=== PATIENT | male | born 1940 | race Caucasian/White ===

== ENCOUNTER 2019-04-07 12:47 | Emergency (ER) | payer MEDICARE ==
[~2019-04-07] VITALS: Ht 177.8 cm; Wt 79.8 kg
[~2019-04-07 12:47] MED LIST: ALLO100T PO; ASPI-1071 PO; CALC0.2511 PO; COR3.125T PO; CYCL25CA PO; FURO40TA4 PO; HYDR-3968 PO; HYDR-4069 PO; MYCO250C46 PO; PANT-47 PO; POTA20PA40 PO; PRED1TAB PO
[2019-04-07 12:49] VITALS: BP 149/67
[2019-04-07] MEDS ORDERED: mupirocin 2% ointment 22GM TP STA (13:06)
[2019-04-07] MEDS ORDERED: MUPI22OI30 TOP (13:10)
[2019-04-23] MEDS ORDERED: SIRO1TAB6 PO (10:09)
[2019-04-23] MEDS ORDERED: PHO667C PO (10:09)
[2019-04-23] MEDS ORDERED: FISH OIL PO (10:16)
[2019-04-23] MEDS ORDERED: ATOR10TA70 PO (10:16)
[2019-04-23] MEDS ORDERED: MULT-955 PO (10:16)
== END 2019-04-07 13:53 | disposition home or self-care (01) ==
LOC: ER 12:48
DX: S41.112A Laceration without foreign body of left upper arm, initial encounter (principal); S70.11XA Contusion of right thigh, initial encounter; S70.12XA Contusion of left thigh, initial encounter; I10 Essential (primary) hypertension; J44.9 Chronic obstructive pulmonary disease, unspecified; F12.90 Cannabis use, unspecified, uncomplicated; Z98.890 Other specified postprocedural states; Z95.0 Presence of cardiac pacemaker; Z88.0 Allergy status to penicillin; Z88.8 Allergy status to other drugs, medicaments and biological substances; Z79.82 Long term (current) use of aspirin; Z79.899 Other long term (current) drug therapy; W01.0XXA Fall on same level from slipping, tripping and stumbling without subsequent striking against object, initial encounter; Y93.89 Activity, other specified; Y92.89 Other specified places as the place of occurrence of the external cause; Y99.8 Other external cause status
CPT/HCPCS: 99283

== ENCOUNTER 2019-04-13 04:07 | Emergency (ER) | payer MEDICARE ==
[~2019-04-13] VITALS: Ht 177.8 cm; Wt 65.0 kg
[~2019-04-13 04:07] MED LIST changes: +MUPI22OI30 TOP
[2019-04-13 04:18] VITALS: BP 151/60
[2019-04-13] MEDS ORDERED: LIDOcaine/epinephrine TOPICAL 5 ML BTL TOP ONE (05:20)
[2019-04-23] MEDS ORDERED: PHO667C PO (10:09)
[2019-04-23] MEDS ORDERED: SIRO1TAB6 PO (10:09)
[2019-04-23] MEDS ORDERED: ATOR10TA70 PO (10:16)
[2019-04-23] MEDS ORDERED: MULT-955 PO (10:16)
[2019-04-23] MEDS ORDERED: FISH OIL PO (10:16)
== END 2019-04-13 07:09 | disposition home or self-care (01) ==
LOC: ER 04:08
DX: S41.112D Laceration without foreign body of left upper arm, subsequent encounter (principal); I10 Essential (primary) hypertension; F12.90 Cannabis use, unspecified, uncomplicated; J44.9 Chronic obstructive pulmonary disease, unspecified; Z88.0 Allergy status to penicillin; Z88.8 Allergy status to other drugs, medicaments and biological substances; Z79.82 Long term (current) use of aspirin; Z79.899 Other long term (current) drug therapy; Z95.0 Presence of cardiac pacemaker; Z98.890 Other specified postprocedural states; Z94.1 Heart transplant status; W01.0XXD Fall on same level from slipping, tripping and stumbling without subsequent striking against object, subsequent encounter
CPT/HCPCS: 99282

== ENCOUNTER 2019-04-25 11:33 | Day surgery (SDC) | payer MEDICARE ==
[2019-04-23 11:20] LABS: CLARITY,URINE CLOUDY (Clear); COLOR,URINE YELLOW (Yellow); GLUCOSE, URINE NEGATIVE (Neg); KETONES,URINE TRACE mg/dl (Neg); LEUKOCYTE ESTERASE ,URINE MODERATE (Neg); NITRITES, URINE NEGATIVE (Neg); OCCULT BLOOD,URINE LARGE (Neg); PH,URINE 5.5 (4.8-8.0); PROTEIN,URINE 100 mg/dl (Neg); UROBILINOGEN,URINE 0.2 E.U/dL (0.2-1.0)
[2019-04-23 11:21] LABS: UA COLLECTION TYPE CLN CATCH MIDSTREAM
[2019-04-23 11:27] LABS: BASOPHILS # (AUTO) 0.1 X10'3 (0-0.2); BASOPHILS % (AUTO) 1.2 % (0-1); EOSINOPHILS % (AUTO) 0.9 % (0-6); LYMPHOCYTES % (AUTO) 21.3 % (21-51); MEAN CORPUSCULAR HEMOGLOBIN 31.6 PG (27.0-31.0); MEAN CORPUSCULAR HGB CONC 32.1 g/dL (33.0-36.5); MEAN CORPUSCULAR VOLUME 98.3 FL (78-98); MEAN PLATELET VOLUME 8.3 FL (7.4-10.4); MONOCYTES # (AUTO) 0.5 X10'3 (0-0.9); MONOCYTES % (AUTO) 11.2 % (2-12); NEUTROPHILS # (AUTO) 3.2 X10'3 (1.8-7.7); NEUTROPHILS % (AUTO) 65.4 % (42-75); PRE OP HEMATOCRIT 33.9 % (42.0-52.0); PRE OP PLATELET COUNT 158 X10'3 (140-440); RED BLOOD COUNT 3.45 X10'6 (4.70-6.10); RED CELL DISTRIBUTION WIDTH 16.3 % (11.5-14.5)
[2019-04-23 11:30] LABS: RBC,URINE 20-50 /HPF (0-2); SQUAMOUS EPITHELIAL CELL,UR MODERATE /LPF (FEW); WBC,URINE TNTC /HPF (0-4)
[2019-04-23 11:31] LABS: BACTERIA,URINE 1+ /HPF (Neg); TRANSITIONAL EPI CELLS,URINE MODERATE /HPF
[2019-04-23 11:31] LABS: PRE OP HEMOGLOBIN 10.9 g/dL (14.0-17.9)
[2019-04-23 11:37] LABS: ALBUMIN 3.2 G/DL (3.4-5.0); ALBUMIN/GLOBULIN RATIO 0.7 (1.1-1.5); ALKALINE PHOSPHATASE 94 IU/L (46-116); BLOOD UREA NITROGEN 55 MG/DL (7-18); BUN/CREATININE RATIO 7.4 (5.4-32.0); CALCIUM 8.4 MG/DL (8.5-10.1); CHLORIDE 102 MMOL/L (99-107); CREATININE 7.44 MG/DL (0.60-1.10); PRE OP ALT 15 U/L (30-65); PRE OP ANION GAP 9 (8-16); PRE OP AST 18 U/L (10-37); PRE OP BILIRUB, TOTAL 0.6 MG/DL (0.0-1.0); PRE OP GLUCOSE 114 MG/DL (70-104); PRE OP SODIUM 140 MMOL/L (135-145); TOTAL CARBON DIOXIDE 29.3 MMOL/L (24-32); TOTAL PROTEIN 7.5 G/DL (6.4-8.2); eGFR 7 ML/MIN
[~2019-04-25] VITALS: Ht 177.8 cm; Wt 77.0 kg
[~2019-04-25 11:33] MED LIST changes: +ATOR10TA70 PO; -CALC0.2511 PO; +DOCUMENT DATE & TIME OF BETA-BLOCKER PO ONE; +FISH OIL PO; +MULT-955 PO; -MUPI22OI30 TOP; -MYCO250C46 PO; -PANT-47 PO; +PHO667C PO; -POTA20PA40 PO; +SIRO1TAB6 PO; +clindamycin-Cleocin 900mg/D5W 50 ML IV ONE; +famotidine 20mg tablet PO ONE; +normal saline 1000ml 1,000 ML IV SCH
[2019-04-25 13:11] LABS: ISTAT CREATININE 6.6 mg/dL (0.8-1.3); ISTAT HGB 11.9 g/dl (14.0-18.0); ISTAT IONIZED CALCIUM 1.09 mmol/L (1.03-1.32); ISTAT K 4.8 mmol/L (3.5-5.1); POC BUN/CREATININE RATIO 6.1 (5.4-32.0)
[2019-04-25] MEDS ORDERED: ringers solution, lacted 1,000 ML IV SCH (13:36)
[2019-04-25] MEDS ORDERED: hydrALAZINE 20mg/ml inj. IV PRN (13:40)
[2019-04-25] MEDS ORDERED: ondansetron/PF 4mg/2ml inj IV PRN (13:40)
[2019-04-25] MEDS ORDERED: morphine 4 MG/ML inj SYRINge IV PRN ×2 (13:40)
[2019-04-25] MEDS ORDERED: fentaNYL/PF 50MCG/1 ML 2ML syringe IV PRN ×2 (13:40)
[2019-04-25] MEDS ORDERED: enalaprilat dihydrate 2.5mg/2ml vial IV PRN (13:40)
[2019-04-25 14:09] VITALS: BP 133/70
[2019-04-25] MEDS ORDERED: heparin sodium, porcine/PF 100unit/ml 5ML syringe ONE (14:12)
[2019-04-25] MEDS ORDERED: mupirocin 2% ointment 22GM ONE (14:12)
[2019-04-25] MEDS ORDERED: BUPIVAcaine/PF 2.5 mg/ml (0.25%) 30ml vial ONE (14:12)
[2019-04-25 14:14] VITALS: BP 133/70
[2019-04-25] MEDS ORDERED: fentaNYL/PF 50MCG/1 ML 2ML syringe ONE (14:44)
[2019-04-25] MEDS ORDERED: midazolam 2 mg/2 ml injection ONE (14:44)
[2019-04-25] MEDS ORDERED: etomidate 2mg/ml inj. ONE (14:45)
[2019-04-25] MEDS ORDERED: sevoflurane 250ml liquid IH ONE (14:58)
[2019-04-25] MEDS ORDERED: rocuronium 10mg/ml inj IV ONE (14:58)
[2019-04-25] MEDS ORDERED: dexamethasone sod phosphate 4mg/ml inj. ONE (15:12)
[2019-04-25] MEDS ORDERED: ondansetron/PF 4mg/2ml inj ONE (15:12)
[2019-04-25 15:47] VITALS: BP 127/65
--- NOTE | 2019-04-25 15:47 | NUR ---
Received from OR via [facility], 20G RIGHT UPPER EXTREMEITY, 10L MASK, 100% SATURATED,, accompanied by Anesthesiologist DC and report given by Anesthesiolgist. A/O, TALKATIVE,DOESNT VERBALIZE ANY PAIN. PD CATH PRESENT LOW LEFT ABDOMIN CLEAN DRY INTACT Addendum: 04/25/19 at 1558 by Gregg Morin RN, RN Amended: Links added.
[2019-04-25 15:57] VITALS: BP 109/54
[2019-04-25 16:07] VITALS: BP 99/51
[2019-04-25 16:17] VITALS: BP 113/52
--- NOTE | 2019-04-25 16:27 | NUR ---
PATIENT SENT HOME WITH NEIGHBOR. ALL DC CRITERIA HAS BEEN MET. IV OUT WITHOUT ISSUE. ALL DC [id number] COVERED AND ALL QUESTIONS ANSWERED. DRESSING CDI TO ABDOMEN AND PD CATH INTACT. Addendum: 04/25/19 at 1705 by Gregg Morin RN RN Amended: Links added.
--- NOTE | 2019-04-25 16:27 | NUR ---
ALL DC CRITERIA HAS BEEN MET. PATIENT UNDERSTOOD ALL DC INSTRUCTIONS. IV OUT WITHOUT COMPLICATIONS. DENIES PAIN. DRESSING TO ABDOMEN IS CDI. VSS. NEW PD CATHETER PRESENT AND CDI. OUT VIA WHEELCHAIR AFTER BEING ASSISTED IN DRESSING. DRINKING WATER AND PATIENT HAS NO COMPLAINTS AT THIS TIME. Addendum: 04/25/19 at 1653 by Gregg Morin RN, RN Amended: Links added.
== END 2019-04-25 16:27 | disposition home or self-care (01) ==
LOC: PAS 11:33
PROVIDERS: ATTEND Surgery
DX: N19 Unspecified kidney failure (principal); M19.90 Unspecified osteoarthritis, unspecified site; Z87.891 Personal history of nicotine dependence; Z98.890 Other specified postprocedural states; Z94.1 Heart transplant status; Z79.899 Other long term (current) drug therapy; Z88.0 Allergy status to penicillin; Z88.8 Allergy status to other drugs, medicaments and biological substances; I10 Essential (primary) hypertension; Z99.2 Dependence on renal dialysis
CPT/HCPCS: 36415; 49324; 80047; 80053; 81001; 85025; 87088; 93005; C1750; J1100; J1642; J2250; J2405; J3010; J3490; J7030; J7120; A4215; A4618; A6449; A7000

== ENCOUNTER 2019-05-19 01:48 | Emergency (ER) | payer MEDICARE ==
[~2019-05-19] VITALS: Ht 177.8 cm; Wt 79.0 kg
[~2019-05-19 01:48] MED LIST changes: -DOCUMENT DATE & TIME OF BETA-BLOCKER PO ONE; -clindamycin-Cleocin 900mg/D5W 50 ML IV ONE; -famotidine 20mg tablet PO ONE; -normal saline 1000ml 1,000 ML IV SCH
[2019-05-19] MEDS ORDERED: normal saline 1000ML IV soln IVB ONE (01:55)
[2019-05-19] MEDS ORDERED: morphine 4 MG/ML inj SYRINge IV PRN (01:55)
[2019-05-19] MEDS ORDERED: ondansetron/PF 4mg/2ml inj IV ONE (01:55)
[2019-05-19] MEDS ORDERED: levoFLOXACIN-Levaquin 250mg/D5 50 ML IV STA (02:23)
[2019-05-19 02:31] LABS: BASOPHILS # (AUTO) 0.1 X10'3 (0-0.2); EOSINOPHILS # (AUTO) 0.2 X10'3 (0-0.9); HEMOGLOBIN 11.5 g/dl (14.0-17.9); MEAN CORPUSCULAR HGB CONC 32.3 g/dL (33.0-36.5); MONOCYTES # (AUTO) 0.7 X10'3 (0-0.9)
[2019-05-19 02:33] LABS: BASOPHILS % (AUTO) 0.9 % (0-1); HEMATOCRIT 35.6 % (42.0-52.0); LYMPHOCYTES % (AUTO) 12.6 % (21-51); MEAN CORPUSCULAR HEMOGLOBIN 32.3 PG (27.0-31.0); MEAN PLATELET VOLUME 8.9 FL (7.4-10.4); NEUTROPHILS % (AUTO) 75.5 % (42-75); PLATELET COUNT 125 X10'3 (140-440); RED BLOOD COUNT 3.56 X10'6 (4.70-6.10); RED CELL DISTRIBUTION WIDTH 16.4 % (11.5-14.5); WHITE BLOOD COUNT 7.9 X10'3 (4.5-11.0)
[2019-05-19 02:41] LABS: PARTIAL THROMBOPLASTIN TIME 30 SECONDS (22-32)
[2019-05-19 02:46] LABS: ALANINE AMINOTRANSFERASE 13 U/L (12-78); ALBUMIN 2.8 G/DL (3.4-5.0); ALBUMIN/GLOBULIN RATIO 0.7 (1.1-1.5); ALKALINE PHOSPHATASE 102 IU/L (46-116); ANION GAP 9 (8-16); ASPARTATE AMINO TRANSFERASE 20 U/L (10-37); BILIRUBIN,TOTAL 0.6 MG/DL (0.1-1.0); BLOOD UREA NITROGEN 58 MG/DL (7-18); CALCIUM 7.9 MG/DL (8.5-10.1); CHLORIDE 104 MMOL/L (99-107); CREATININE 7.26 MG/DL (0.60-1.10); GLUCOSE 95 MG/DL (70-104); LIPASE 151 U/L (73-393); POTASSIUM 5.1 MMOL/L (3.5-5.1); SODIUM 141 MMOL/L (135-145); TOTAL CARBON DIOXIDE 27.6 MMOL/L (24-32); TOTAL PROTEIN 7.1 G/DL (6.4-8.2); eGFR 7 ML/MIN
[2019-05-19 03:37] LABS: CLARITY,URINE CLOUDY (Clear); COLOR,URINE YELLOW (Yellow); GLUCOSE, URINE NEGATIVE (Neg); KETONES,URINE TRACE mg/dl (Neg); LEUKOCYTE ESTERASE ,URINE MODERATE (Neg); NITRITES, URINE NEGATIVE (Neg); OCCULT BLOOD,URINE LARGE (Neg); PH,URINE 5.5 (4.8-8.0); PROTEIN,URINE 100 mg/dl (Neg); UA COLLECTION TYPE VOIDED; UROBILINOGEN,URINE 0.2 E.U/dL (0.2-1.0)
[2019-05-19 04:38] LABS: WBC,URINE 50-100 /HPF (0-4)
[2019-05-19 04:39] LABS: RBC,URINE 20-50 /HPF (0-2)
[2019-05-19 04:40] LABS: AMORPHOUS URATES 1+; BACTERIA,URINE FEW /HPF (Neg); MUCUS STRANDS NONE SEEN /LPF (Neg); SQUAMOUS EPITHELIAL CELL,UR FEW /LPF (FEW); WBC CLUMPS,URINE MODERATE /HPF (NEGATIVE)
[2019-05-19 04:52] VITALS: BP 103/62
== END 2019-05-19 04:55 | disposition home or self-care (01) ==
LOC: ER 01:49
DX: R10.84 Generalized abdominal pain (principal); R11.2 Nausea with vomiting, unspecified; J44.9 Chronic obstructive pulmonary disease, unspecified; F12.90 Cannabis use, unspecified, uncomplicated; I10 Essential (primary) hypertension; Z87.891 Personal history of nicotine dependence; Z98.890 Other specified postprocedural states; Z94.1 Heart transplant status; Z88.0 Allergy status to penicillin; Z88.5 Allergy status to narcotic agent; Z79.82 Long term (current) use of aspirin; Z79.899 Other long term (current) drug therapy; Z99.2 Dependence on renal dialysis
CPT/HCPCS: 36415; 80053; 81001; 83690; 84145; 85025; 85610; 85730; 87040; 87088; 96365; 96375; 99283; J1956; J2270; J2405; J7030

== ENCOUNTER 2019-05-23 11:52 | Day surgery (SDC) | payer MEDICARE ==
[~2019-05-23] VITALS: Ht 177.8 cm; Wt 80.3 kg
[~2019-05-23 11:52] MED LIST changes: +DOCUMENT DATE & TIME OF BETA-BLOCKER PO ONE; +clindamycin-Cleocin 900mg/D5W 50 ML IV ONE; +famotidine 20mg tablet PO ONE; +ringers solution, lacted 1,000 ML IV SCH
[2019-05-23 12:00] VITALS: BP 122/65
[2019-05-23 13:25] LABS: BASOPHILS % (AUTO) 0.5 % (0-1); EOSINOPHILS # (AUTO) 0.1 X10'3 (0-0.9); EOSINOPHILS % (AUTO) 0.8 % (0-6); HEMOGLOBIN 11.6 g/dl (14.0-17.9); LYMPHOCYTES # (AUTO) 0.9 X10'3 (1.1-4.8); LYMPHOCYTES % (AUTO) 13.1 % (21-51); MEAN CORPUSCULAR HEMOGLOBIN 32.4 PG (27.0-31.0); MEAN CORPUSCULAR HGB CONC 32.3 g/dL (33.0-36.5); MEAN CORPUSCULAR VOLUME 100.4 FL (78-98); MEAN PLATELET VOLUME 8.6 FL (7.4-10.4); MONOCYTES # (AUTO) 0.6 X10'3 (0-0.9); MONOCYTES % (AUTO) 9.5 % (2-12); NEUTROPHILS # (AUTO) 5.2 X10'3 (1.8-7.7); NEUTROPHILS % (AUTO) 76.1 % (42-75); PLATELET COUNT 131 X10'3 (140-440); RED BLOOD COUNT 3.58 X10'6 (4.70-6.10); RED CELL DISTRIBUTION WIDTH 16.7 % (11.5-14.5); WHITE BLOOD COUNT 6.9 X10'3 (4.5-11.0)
[2019-05-23 13:47] LABS: ALANINE AMINOTRANSFERASE 6 U/L (12-78); ALBUMIN 2.4 G/DL (3.4-5.0); ALBUMIN/GLOBULIN RATIO 0.6 (1.1-1.5); ALKALINE PHOSPHATASE 95 IU/L (46-116); ANION GAP 8 (8-16); ASPARTATE AMINO TRANSFERASE 15 U/L (10-37); BILIRUBIN,TOTAL 0.6 MG/DL (0.1-1.0); BLOOD UREA NITROGEN 43 MG/DL (7-18); BUN/CREATININE RATIO 5.9 (5.4-32.0); CALCIUM 8.1 MG/DL (8.5-10.1); CHLORIDE 102 MMOL/L (99-107); CREATININE 7.26 MG/DL (0.60-1.10); GLUCOSE 93 MG/DL (70-104); POTASSIUM 4.9 MMOL/L (3.5-5.1); SODIUM 139 MMOL/L (135-145); TOTAL CARBON DIOXIDE 28.9 MMOL/L (24-32); TOTAL PROTEIN 6.7 G/DL (6.4-8.2); eGFR 7 ML/MIN
[2019-05-23] MEDS ORDERED: midazolam 2 mg/2 ml injection ONE (15:58)
[2019-05-23] MEDS ORDERED: fentaNYL/PF 50MCG/1 ML 2ML syringe ONE (15:58)
[2019-05-23 16:00] VITALS: BP 108/61
--- NOTE | 2019-05-23 16:00 | NUR ---
Received from OR via [facility] , accompanied by Anesthesiologist PERRY and report given by Anesthesiolgist. Pt with 20 gauge left hand abx running. Abd dressing present, cdi. vitals stable, cont to access. Addendum: 05/23/19 at 1624 by Gregg Morin RN RN Amended: Links added.
[2019-05-23] MEDS ORDERED: propofol inj 20 ML IV ONE (16:01)
[2019-05-23] MEDS ORDERED: LIDOcaine 2% (20mg/ml) 5ml vial ONE (16:01)
[2019-05-23 16:10] VITALS: BP 124/62
[2019-05-23 16:20] VITALS: BP 120/54
[2019-05-23 16:30] VITALS: BP 107/51
[2019-05-23 16:40] VITALS: BP 108/68
--- NOTE | 2019-05-23 16:50 | NUR ---
ALL DC CRITERIA HAS BEEN MET. IV TAKEN OUT WITHOUT COMPLICATIONS. ALL INSTRUCTIONS COVERED AND ALL QUESTIONS ANSWERED. DRESSINGS CDI. OUT VIA WHEELCHAIR TO PERSONAL VEHICLE WHERE PATIENT WAS SECURED IN AND DRIVEN HOME BY neighbors. Addendum: 05/23/19 at 1658 by Gregg Morin RN, RN Amended: Links added.
== END 2019-05-23 16:50 | disposition home or self-care (01) ==
LOC: PAS 11:52
PROVIDERS: ATTEND Surgery
DX: T82.49XA Other complication of vascular dialysis catheter, initial encounter (principal); N18.6 End stage renal disease; M19.90 Unspecified osteoarthritis, unspecified site; Z94.1 Heart transplant status; Z98.890 Other specified postprocedural states; Z79.899 Other long term (current) drug therapy; Z88.0 Allergy status to penicillin; Z88.8 Allergy status to other drugs, medicaments and biological substances; Z87.891 Personal history of nicotine dependence; Z72.89 Other problems related to lifestyle; Z99.2 Dependence on renal dialysis; Y83.8 Other surgical procedures as the cause of abnormal reaction of the patient, or of later complication, without mention of misadventure at the time of the procedure; Y92.89 Other specified places as the place of occurrence of the external cause
CPT/HCPCS: 36415; 49422; 80053; 85025; 93005; J2001; J2250; J2704; J3010; J3490; J7120

== ENCOUNTER 2019-05-26 11:20 | Emergency (ER) | payer MEDICARE ==
[~2019-05-26] VITALS: Ht 177.8 cm; Wt 79.5 kg
[~2019-05-26 11:20] MED LIST changes: -DOCUMENT DATE & TIME OF BETA-BLOCKER PO ONE; -clindamycin-Cleocin 900mg/D5W 50 ML IV ONE; -famotidine 20mg tablet PO ONE; -ringers solution, lacted 1,000 ML IV SCH
[2019-05-26] MEDS ORDERED: CefTRIAXone 2gm/D5W 50ml 50 ML IV ONE (12:50)
[2019-05-26 13:48] LABS: ALANINE AMINOTRANSFERASE 7 U/L (12-78); ALBUMIN 2.3 G/DL (3.4-5.0); ALBUMIN/GLOBULIN RATIO 0.5 (1.1-1.5); ALKALINE PHOSPHATASE 99 IU/L (46-116); ANION GAP 13 (8-16); ASPARTATE AMINO TRANSFERASE 14 U/L (10-37); BILIRUBIN,TOTAL 0.5 MG/DL (0.1-1.0); BLOOD UREA NITROGEN 75 MG/DL (7-18); BUN/CREATININE RATIO 6.4 (5.4-32.0); CALCIUM 8.3 MG/DL (8.5-10.1); CHLORIDE 101 MMOL/L (99-107); CREATININE 11.68 MG/DL (0.60-1.10); GLUCOSE 111 MG/DL (70-104); POTASSIUM 5.2 MMOL/L (3.5-5.1); SODIUM 138 MMOL/L (135-145); TOTAL CARBON DIOXIDE 24.2 MMOL/L (24-32); TOTAL PROTEIN 6.6 G/DL (6.4-8.2); eGFR 4 ML/MIN
[2019-05-26 13:52] LABS: BASOPHILS % (AUTO) 0.4 % (0-1); EOSINOPHILS % (AUTO) 0.2 % (0-6); HEMATOCRIT 36.6 % (42.0-52.0); HEMOGLOBIN 11.7 g/dl (14.0-17.9); LYMPHOCYTES # (AUTO) 0.9 X10'3 (1.1-4.8); LYMPHOCYTES % (AUTO) 8.2 % (21-51); MEAN CORPUSCULAR HEMOGLOBIN 31.6 PG (27.0-31.0); MEAN CORPUSCULAR HGB CONC 31.8 g/dL (33.0-36.5); MEAN CORPUSCULAR VOLUME 99.3 FL (78-98); MEAN PLATELET VOLUME 8.8 FL (7.4-10.4); MONOCYTES # (AUTO) 0.5 X10'3 (0-0.9); MONOCYTES % (AUTO) 4.3 % (2-12); NEUTROPHILS # (AUTO) 9.8 X10'3 (1.8-7.7); NEUTROPHILS % (AUTO) 86.9 % (42-75); PLATELET COUNT 142 X10'3 (140-440); RED BLOOD COUNT 3.69 X10'6 (4.70-6.10); RED CELL DISTRIBUTION WIDTH 16.1 % (11.5-14.5); WHITE BLOOD COUNT 11.3 X10'3 (4.5-11.0)
[2019-05-26 14:36] VITALS: BP 148/77
== END 2019-05-26 14:25 | disposition home or self-care (01) ==
LOC: ER 11:21
DX: T85.838A Hemorrhage due to other internal prosthetic devices, implants and grafts, initial encounter (principal); I12.0 Hypertensive chronic kidney disease with stage 5 chronic kidney disease or end stage renal disease; N18.6 End stage renal disease; F12.90 Cannabis use, unspecified, uncomplicated; J44.9 Chronic obstructive pulmonary disease, unspecified; Z99.2 Dependence on renal dialysis; Z98.890 Other specified postprocedural states; Z94.1 Heart transplant status; Z88.0 Allergy status to penicillin; Z88.8 Allergy status to other drugs, medicaments and biological substances; Z79.82 Long term (current) use of aspirin; Z79.899 Other long term (current) drug therapy; Y69 Unspecified misadventure during surgical and medical care; Y92.89 Other specified places as the place of occurrence of the external cause
CPT/HCPCS: 36415; 80053; 83605; 84145; 85025; 87040; 96365; 99284; J0696

== ENCOUNTER 2019-06-03 09:02 | Emergency (ER) | payer MEDICARE ==
[~2019-06-03] VITALS: Ht 177.8 cm; Wt 77.3 kg
[2019-06-03] MEDS ORDERED: normal saline 1000ml 1,000 ML IV SCH (09:15)
[2019-06-03] MEDS ORDERED: pantoprazole 40 MG vial IV ONE (09:15)
[2019-06-03] MEDS ORDERED: ondansetron/PF 4mg/2ml inj IV ONE (09:15)
[2019-06-03 10:42] LABS: EOSINOPHILS % (AUTO) 0.4 % (0-6); HEMOGLOBIN 12.1 g/dl (14.0-17.9); MONOCYTES # (AUTO) 0.6 X10'3 (0-0.9); MONOCYTES % (AUTO) 5.6 % (2-12); RED CELL DISTRIBUTION WIDTH 16.4 % (11.5-14.5)
[2019-06-03 10:43] LABS: BASOPHILS % (AUTO) 0.3 % (0-1); HEMATOCRIT 37.7 % (42.0-52.0); LYMPHOCYTES # (AUTO) 0.9 X10'3 (1.1-4.8); LYMPHOCYTES % (AUTO) 7.6 % (21-51); MEAN CORPUSCULAR HEMOGLOBIN 31.6 PG (27.0-31.0); MEAN CORPUSCULAR HGB CONC 32.1 g/dL (33.0-36.5); MEAN CORPUSCULAR VOLUME 98.6 FL (78-98); MEAN PLATELET VOLUME 8.5 FL (7.4-10.4); NEUTROPHILS # (AUTO) 10.1 X10'3 (1.8-7.7); NEUTROPHILS % (AUTO) 86.1 % (42-75); PLATELET COUNT 148 X10'3 (140-440); RED BLOOD COUNT 3.82 X10'6 (4.70-6.10); WHITE BLOOD COUNT 11.7 X10'3 (4.5-11.0)
[2019-06-03 11:08] LABS: PLATELET ESTIMATE NORMAL
[2019-06-03 11:09] LABS: ALANINE AMINOTRANSFERASE 11 U/L (12-78); ALBUMIN 2.5 G/DL (3.4-5.0); ALBUMIN/GLOBULIN RATIO 0.6 (1.1-1.5); ALKALINE PHOSPHATASE 98 IU/L (46-116); ANION GAP 11 (8-16); ANISOCYTOSIS 1+; ASPARTATE AMINO TRANSFERASE 20 U/L (10-37); BILIRUBIN,TOTAL 0.4 MG/DL (0.1-1.0); BLOOD UREA NITROGEN 55 MG/DL (7-18); BUN/CREATININE RATIO 6.3 (5.4-32.0); CALCIUM 8.4 MG/DL (8.5-10.1); CHLORIDE 104 MMOL/L (99-107); CREATININE 8.78 MG/DL (0.60-1.10); ELLIPTOCYTES 1+; GLUCOSE 94 MG/DL (70-104); POLYCHROMASIA 1+; POTASSIUM 4.1 MMOL/L (3.5-5.1); SODIUM 140 MMOL/L (135-145); TOTAL CARBON DIOXIDE 24.7 MMOL/L (24-32); TOTAL PROTEIN 6.6 G/DL (6.4-8.2); eGFR 6 ML/MIN
--- NOTE | 2019-06-03 11:31 | NUR ---
PATIENT TO CT AT THIS TIME.
[2019-06-03] MEDS ORDERED: ONDA4TAB6 PO (12:02)
[2019-06-03] MEDS ORDERED: CIPR-260 PO (12:02)
[2019-06-03] MEDS ORDERED: METR-159 PO (12:02)
[2019-06-03 12:11] VITALS: BP 147/62
== END 2019-06-03 12:13 | disposition home or self-care (01) ==
LOC: ER 09:04
DX: K57.32 Diverticulitis of large intestine without perforation or abscess without bleeding (principal); R11.2 Nausea with vomiting, unspecified; R19.7 Diarrhea, unspecified; E66.9 Obesity, unspecified; R10.84 Generalized abdominal pain; J44.9 Chronic obstructive pulmonary disease, unspecified; F12.90 Cannabis use, unspecified, uncomplicated; I12.0 Hypertensive chronic kidney disease with stage 5 chronic kidney disease or end stage renal disease; N18.6 End stage renal disease; Z88.0 Allergy status to penicillin; Z88.8 Allergy status to other drugs, medicaments and biological substances; Z79.82 Long term (current) use of aspirin; Z79.899 Other long term (current) drug therapy; Z99.2 Dependence on renal dialysis; Z98.890 Other specified postprocedural states; Z94.1 Heart transplant status
CPT/HCPCS: 36415; 74176; 80053; 85025; 96361; 96374; 96375; 99284; C9113; J2405; J7030

== ENCOUNTER 2019-06-14 12:21 | Emergency (ER) | payer MEDICARE ==
[~2019-06-14] VITALS: Ht 162.6 cm; Wt 72.7 kg
[~2019-06-14 12:21] MED LIST changes: +CIPR-260 PO; +METR-159 PO; +ONDA4TAB6 PO
[2019-06-14 14:02] LABS: BASOPHILS # (AUTO) 0.1 X10'3 (0-0.2); BASOPHILS % (AUTO) 0.7 % (0-1); EOSINOPHILS % (AUTO) 0.2 % (0-6); HEMATOCRIT 39.1 % (42.0-52.0); HEMOGLOBIN 12.4 g/dl (14.0-17.9); LYMPHOCYTES # (AUTO) 1.1 X10'3 (1.1-4.8); LYMPHOCYTES % (AUTO) 6.7 % (21-51); MEAN CORPUSCULAR HEMOGLOBIN 31.2 PG (27.0-31.0); MEAN CORPUSCULAR HGB CONC 31.7 g/dL (33.0-36.5); MEAN CORPUSCULAR VOLUME 98.3 FL (78-98); MEAN PLATELET VOLUME 8.6 FL (7.4-10.4); MONOCYTES # (AUTO) 0.8 X10'3 (0-0.9); MONOCYTES % (AUTO) 4.8 % (2-12); NEUTROPHILS # (AUTO) 14.5 X10'3 (1.8-7.7); NEUTROPHILS % (AUTO) 87.6 % (42-75); PLATELET COUNT 175 X10'3 (140-440); RED BLOOD COUNT 3.97 X10'6 (4.70-6.10); WHITE BLOOD COUNT 16.5 X10'3 (4.5-11.0)
[2019-06-14 14:18] LABS: ALANINE AMINOTRANSFERASE 7 U/L (12-78); ALBUMIN 2.6 G/DL (3.4-5.0); ALBUMIN/GLOBULIN RATIO 0.6 (1.1-1.5); ALKALINE PHOSPHATASE 87 IU/L (46-116); ANION GAP 13 (8-16); ASPARTATE AMINO TRANSFERASE 20 U/L (10-37); BILIRUBIN,TOTAL 0.4 MG/DL (0.1-1.0); BLOOD UREA NITROGEN 31 MG/DL (7-18); BUN/CREATININE RATIO 3.8 (5.4-32.0); CALCIUM 8.4 MG/DL (8.5-10.1); CHLORIDE 103 MMOL/L (99-107); CREATININE 8.06 MG/DL (0.60-1.10); GLUCOSE 88 MG/DL (70-104); POTASSIUM 3.6 MMOL/L (3.5-5.1); SODIUM 140 MMOL/L (135-145); TOTAL CARBON DIOXIDE 23.6 MMOL/L (24-32); TOTAL PROTEIN 6.9 G/DL (6.4-8.2); eGFR 6 ML/MIN
[2019-06-14 15:27] LABS: C DIFF ANTIGEN POSITIVE (NEGATIVE); C DIFF SPECIMEN=DIARRHEA? ACCEPTABLE; C DIFFICILE TOXINS A&B POSITIVE (Neg)
--- NOTE | 2019-06-14 15:28 | NUR ---
Positive C-Diff 1526 Addendum: 06/14/19 at 1537 by ELKIN C-Diff Isolation already in place
[2019-06-14] MEDS ORDERED: VANC125C5 PO (15:45)
[2019-06-14] MEDS ORDERED: vancomycin 125mg/5ml ORAL solution 5ml UD bottle PO SCH (15:55)
[2019-06-14 16:20] VITALS: BP 146/80
== END 2019-06-14 16:24 | disposition home or self-care (01) ==
LOC: ER 12:22
DX: A04.72 Enterocolitis due to Clostridium difficile, not specified as recurrent (principal); I10 Essential (primary) hypertension; J44.9 Chronic obstructive pulmonary disease, unspecified; F12.90 Cannabis use, unspecified, uncomplicated; Z95.0 Presence of cardiac pacemaker; Z98.890 Other specified postprocedural states; Z60.2 Problems related to living alone; Z88.0 Allergy status to penicillin; Z88.8 Allergy status to other drugs, medicaments and biological substances; Z79.82 Long term (current) use of aspirin; Z79.899 Other long term (current) drug therapy
CPT/HCPCS: 36415; 80053; 85025; 87324; 87449; 99284

== ENCOUNTER 2019-06-29 08:08 | Emergency (ER) | payer MEDICARE ==
[~2019-06-29] VITALS: Ht 177.8 cm; Wt 75.0 kg
[~2019-06-29 08:08] MED LIST changes: -METR-159 PO; +VANC125C5 PO
[2019-06-29] MEDS ORDERED: normal saline 1000ML IV soln IVB ONE (09:10)
[2019-06-29] MEDS ORDERED: ondansetron/PF 4mg/2ml inj IV ONE (09:10)
--- NOTE | 2019-06-29 09:56 | NUR ---
pt refuses zofran at this time he is not nauseous.
[2019-06-29 09:58] LABS: BASOPHILS # (AUTO) 0.1 X10'3 (0-0.2); BASOPHILS % (AUTO) 0.7 % (0-1); EOSINOPHILS # (AUTO) 0.1 X10'3 (0-0.9); EOSINOPHILS % (AUTO) 0.6 % (0-6); HEMATOCRIT 35.4 % (42.0-52.0); HEMOGLOBIN 11.3 g/dl (14.0-17.9); LYMPHOCYTES % (AUTO) 9.4 % (21-51); MEAN CORPUSCULAR VOLUME 96.8 FL (78-98); MEAN PLATELET VOLUME 8.3 FL (7.4-10.4); MONOCYTES # (AUTO) 0.5 X10'3 (0-0.9); MONOCYTES % (AUTO) 4.3 % (2-12); NEUTROPHILS # (AUTO) 9.2 X10'3 (1.8-7.7); PLATELET COUNT 172 X10'3 (140-440); RED BLOOD COUNT 3.65 X10'6 (4.70-6.10); RED CELL DISTRIBUTION WIDTH 15.7 % (11.5-14.5); WHITE BLOOD COUNT 10.8 X10'3 (4.5-11.0)
[2019-06-29 10:10] LABS: ALANINE AMINOTRANSFERASE 15 U/L (12-78); ALBUMIN 2.5 G/DL (3.4-5.0); ALBUMIN/GLOBULIN RATIO 0.7 (1.1-1.5); ALKALINE PHOSPHATASE 99 IU/L (46-116); ANION GAP 12 (8-16); ASPARTATE AMINO TRANSFERASE 21 U/L (10-37); BILIRUBIN,TOTAL 0.5 MG/DL (0.1-1.0); BLOOD UREA NITROGEN 43 MG/DL (7-18); BUN/CREATININE RATIO 6.8 (5.4-32.0); CALCIUM 7.9 MG/DL (8.5-10.1); CHLORIDE 107 MMOL/L (99-107); CREATININE 6.36 MG/DL (0.60-1.10); GLUCOSE 70 MG/DL (70-104); LIPASE 94 U/L (73-393); POTASSIUM 3.9 MMOL/L (3.5-5.1); SODIUM 143 MMOL/L (135-145); TOTAL CARBON DIOXIDE 24.4 MMOL/L (24-32); TOTAL PROTEIN 6.3 G/DL (6.4-8.2); eGFR 9 ML/MIN
[2019-06-29] MEDS ORDERED: VANC250C12 PO (10:57)
[2019-06-29 11:27] VITALS: BP 122/68
== END 2019-06-29 11:31 | disposition home or self-care (01) ==
LOC: ER 08:09
DX: R19.7 Diarrhea, unspecified (principal); A04.72 Enterocolitis due to Clostridium difficile, not specified as recurrent; I10 Essential (primary) hypertension; J44.9 Chronic obstructive pulmonary disease, unspecified; F12.90 Cannabis use, unspecified, uncomplicated; Z98.890 Other specified postprocedural states; Z95.0 Presence of cardiac pacemaker; Z99.2 Dependence on renal dialysis; Z88.0 Allergy status to penicillin; Z88.5 Allergy status to narcotic agent; Z79.82 Long term (current) use of aspirin; Z79.899 Other long term (current) drug therapy
CPT/HCPCS: 36415; 80053; 83690; 85025; 99284; J2405; J7030